=== PATIENT | male | born 1945 | race Caucasian/White ===

== ENCOUNTER → 2021-05-11 | Outpatient (CLI) | payer OTHER | END | disposition home or self-care (01) | LOC: SHCH 13:11 | PROVIDERS: ATTEND Internal Medicine Cardiovascular Disease | DX: Z01.810 Encounter for preprocedural cardiovascular examination (principal); H26.9 Unspecified cataract; Z95.2 Presence of prosthetic heart valve | CPT/HCPCS: 93306 ==

== ENCOUNTER → 2023-10-18 | Outpatient (CLI) | payer OTHER ==
[~2023-10-18] MED LIST: IOHEXOL 350 MG/ML 100ML INFUS..BTL IV ONE
== END | disposition home or self-care (01) ==
LOC: RAH 08:43
PROVIDERS: ATTEND Internal Medicine Cardiovascular Disease
DX: I71.21 Aneurysm of the ascending aorta, without rupture (principal); K40.90 Unilateral inguinal hernia, without obstruction or gangrene, not specified as recurrent; I70.0 Atherosclerosis of aorta; K76.89 Other specified diseases of liver; Z95.2 Presence of prosthetic heart valve
CPT/HCPCS: 74174; 71275; Q9967

== ENCOUNTER → 2023-12-13 | Outpatient (CLI) | payer OTHER ==
--- NOTE | 2023-12-27 14:47 | HMCSR ---
APPROVED REPORT EXAM: Two-dimensional and M-mode echocardiogram with Doppler and color Doppler. INDICATION ICD: R07.9 Chest pain 2D Dimensions RVDd3.8 cmLVEF(%)60.5 (>50%)LVED Vol(simp.)98.0 mL IVSd1.1 (0.7-1.1cm)FS(%)32 %LVES Vol(simp.)42.0 mL LVDd3.9 (3.8-5.6cm)IVC diam2.0 cmLVEF(%, simp.)57 % PWd0.9 (0.7-1.1cm)LA ESV INDEX (BP)26.70 mL/m2 LVDs2.7 (2.5-4.0cm) Deformation Strain Apical 4-14.4 % Apical 2-16.6 % Apical 3-14.5 % Global Strain-15.2 % Aortic Valve AoV Vmax2.1 m/Alessandro Peak GR16.9 mmHgLVOT Vmax1.0 m/s AoV VTI0.4 mAo Mean GR8.8 mmHgLVOT VTI0.24 m Mitral Valve MV E Vmax84.6 cm/sDECEL Sdcb278 ms MV A Vmax75.1 cm/sP 1/2 T72 ms E/A ratio1.1MVA (PHT)3.0 cm2 MR Max PG120 mmHg TDI E/E' Pmnysf97.0E/E' Aszyrsz16.5 Pulmonary Valve PV Vmax1.1 m/sPV VTI0.22 mPV Mean GR2 mmHg PV Peak GR4.7 mmHgPI End Briseida. Jason 0.8 cm/s Tricuspid Valve TR Vmax2.6 m/sRAP (EST) 8 cfOrVGHV24.2 mmHg TR Peak GR26.2 mmHg Left Ventricle The left ventricle structure and function is normal. There is normal LV segmental wall motion. There is borderline to mild left ventricular hypertrophy. LVEF is 55-60%. 3D/4D LVEF is 57%. GLS rate is -1 5.2%. Indeterminate diastolic dysfunction. Right Ventricle The right ventricle is normal size. The right ventricular systolic function is normal. Atria The left atrium size is normal. The right atrium is mildly dilated. Aortic Valve Prosthetic aortic valve is present. Prosthetic aortic valve is normal in appearance and well seated. Trace perivalvular aortic regurgitation. AV Dimensionless Index is 0.53 Maximum pressure gradient of 16.9 mmHg and mean pressure gradient of 8.8 mmHg. Mitral Valve Mitral valve leaflets are mildly calcified. Mitral annular calcification is mild. Mitral regurgitatio n is trace. There is no mitral valve stenosis. Tricuspid Valve The tricuspid valve leaflets appear normal. There is mild tricuspid regurgitation. Right ventricular systolic pressure is estimated at 30-40 mmHg. Pulmonic Valve Pulmonic valve is not well visualized. There is trace to mild valvular regurgitation. Great Vessels The aortic root is not well visualized but is probably normal size. IVC is dilated and collapses >50% with inspiration. Pericardium The pericardium appears normal. Conclusion LVEF is 55-60%. GLS rate is -15.2%. Prosthetic aortic valve is present. Trace perivalvular aortic regurgitation. Mitral regurgitation is trace. Right ventricular systolic pressure is estimated at 30-40 mmHg.
== END | disposition home or self-care (01) ==
LOC: SHCH 12:27
PROVIDERS: ATTEND Internal Medicine Cardiovascular Disease
DX: I08.8 Other rheumatic multiple valve diseases (principal); R07.9 Chest pain, unspecified; Z95.2 Presence of prosthetic heart valve
CPT/HCPCS: 93306

== ENCOUNTER → 2023-12-14 | Outpatient (CLI) | payer OTHER ==
[2023-12-14] MEDS: REGADENOSON 0.4 MG/5 ML PF SYG IVP SCH (13:21)
== END | disposition home or self-care (01) ==
LOC: RAH 08:41
PROVIDERS: ATTEND Internal Medicine Cardiovascular Disease
DX: R07.9 Chest pain, unspecified (principal); R06.09 Other forms of dyspnea
CPT/HCPCS: 78452; 93017; J2785; A9500 ×2

== ENCOUNTER → 2024-02-01 | Outpatient (CLI) | payer OTHER ==
[~2024-02-01] MED LIST changes: +metoPROLOL tartRATE 1 MG/ML 5ML VIAL IV ONE
--- NOTE | 2024-02-01 11:20 | HMCIMG ---
CT CARDIAC ANGIO W/CONT. CCTA HISTORY: Abnormal bleeding COMPARISON: None TECHNIQUE: Multiple sequential axial images of the chest were obtained along with the CT angiogram of the chest study. Patient was given 100 cc of Omnipaque through intravenous route. FINDINGS: There is ascending thoracic aortic aneurysm measuring 4.5 x 4.5 cm. Vascular calcifications are seen. There is no evidence of pulmonary nodule or parenchymal disease. No pleural effusion or pericardial effusion is seen. There is no evidence of pneumothorax. There are normal size mediastinal and hilar lymph nodes. The heart is not enlarged. Coronary arterial calcifications are seen. Degenerative changes of the thoracolumbar spine are present. IMPRESSION: 1. No evidence of pulmonary nodule or effusion is seen. Ascending thoracic aortic aneurysm measuring [address] angiogram report of coronary arteries.
== END | disposition home or self-care (01) ==
LOC: RAH 08:45
PROVIDERS: ATTEND Internal Medicine Cardiovascular Disease
DX: I71.21 Aneurysm of the ascending aorta, without rupture (principal); R06.09 Other forms of dyspnea; R94.39 Abnormal result of other cardiovascular function study; I70.0 Atherosclerosis of aorta; I25.10 Atherosclerotic heart disease of native coronary artery without angina pectoris; M47.815 Spondylosis without myelopathy or radiculopathy, thoracolumbar region
CPT/HCPCS: 75574; J3490; Q9967